=== PATIENT | female | born 1935 | race African-American/Black ===

== ENCOUNTER → 2021-05-06 | Outpatient (CLI) | payer MEDICARE | END | disposition home or self-care (01) | LOC: RADPV 10:26 | PROVIDERS: ATTEND Physical Medicine & Rehabilitation Pain Medicine | DX: M16.7 Other unilateral secondary osteoarthritis of hip (principal); M16.12 Unilateral primary osteoarthritis, left hip; M85.88 Other specified disorders of bone density and structure, other site; M47.9 Spondylosis, unspecified | CPT/HCPCS: 73521 ==